=== PATIENT | male | born 1955 | race Native Hawaiian/Other Pacific Islander ===

== ENCOUNTER 2017-05-18 09:35 | Emergency (ER) | payer SELFPAY ==
[2017-05-18 09:45] VITALS: RESP 18; O2SAT 98
--- NOTE | 2017-05-18 10:13 | C.PDOC ---
History Of Present Illness 62 year old male presents to the ED with complaints of a burning sensation, worsen by eating, and diffuse abdominal pain for two weeks. Patient also notes increased urinary frequency. He is visiting from [facility] and states while in [place] he saw a doctor in December with an US performed showing chronic calculous cholecystitis. Patient also notes history of high blood pressure but is not taking any medications. He denies fever, nausea, vomiting, or diarrhea. Time Seen by Provider: 05/18/17 09:54 Chief Complaint (Nursing): Abdominal Pain History Per: Patient History/Exam Limitations: no limitations Onset/Duration Of Symptoms: Days (2 weeks ) Current Symptoms Are (Timing): Still Present Location Of Pain/Discomfort: Diffuse (patient points to entire abdomen ) Radiation Of Pain To:: None Quality Of Discomfort: Burning Associated Symptoms: denies: Fever, Chills, Nausea, Vomiting, Diarrhea Exacerbating Factors: Food (when eating ) Recent travel outside of the [place]: No Past Medical History Reviewed: Historical Data, Nursing Documentation, Vital Signs Vital Signs: Last Vital Signs Temp 97.6 F 05/18/17 09:37 Pulse 63 05/18/17 09:37 Resp 18 05/18/17 09:37 BP 147/87 05/18/17 09:37 Pulse Ox 98 05/18/17 14:49 - Medical History PMH: HTN Family History: States: Other Other Family History: Non-contributory. - Social History Hx Alcohol Use: No Hx Substance Use: No - Immunization History Hx Tetanus Toxoid Vaccination: No Hx Influenza Vaccination: No Hx Pneumococcal Vaccination: No Review Of Systems Constitutional: Negative for: Fever, Chills Cardiovascular: Negative for: Chest Pain, Palpitations Respiratory: Negative for: Cough, Shortness of Breath Gastrointestinal: Positive for: Abdominal Pain. Negative for: Nausea, Vomiting , Diarrhea Genitourinary: Positive for: Frequency (increased frequency of urination. ) Physical Exam - Physical Exam Appears: Non-toxic, No Acute Distress Skin: Warm, Dry Head: Atraumatic Eye(s): bilateral: Normal Inspection Oral Mucosa: Moist Neck: Supple Chest: Symmetrical, No Deformity Cardiovascular: Rhythm Regular Respiratory: Normal Breath Sounds, No Rales, No Rhonchi, No Wheezing Gastrointestinal/Abdominal: Soft, Tenderness (Lower abdominal tenderness, no RUQ tenderness ), No Distention, No Guarding, No Rebound Neurological/Psych: Oriented x3, Normal Speech, Normal Cognition, Normal Motor, Normal Sensation ED Course And Treatment - Laboratory Results Result Diagrams: 05/18/17 10:30 05/18/17 10:30 ECG: Interpreted By Me, Viewed By Me ECG Rhythm: Sinus Rhythm Rate From EC O2 Sat by Pulse Oximetry: 98 (room air ) - CT Scan/US Gall Bladder US Other Rad Studies (CT/US): Read By Radiologist, Radiology Report Reviewed CT/US Interpretation: FINDINGS: LIVER: Measures 14.3 cm in length. Normal echogenicity of the liver parenchyma. No mass. No intrahepatic bile duct dilatation. GALLBLADDER: Rather distended with cholelithiasis. No significant mural thickening or pericholecystic fluid collection is evident however. COMMON BILE DUCT: Measures 3.2 mm. No stones. No dilatation. PANCREAS: The body of pancreas is unremarkable the head and tail obscured by overlying bowel gas. RIGHT KIDNEY: Measures 10.0 cm in length. Normal echogenicity. No calculus, mass, or hydronephrosis. AORTA: No aneurysmal dilatation. IVC: Unremarkable. OTHER FINDINGS: None . IMPRESSION: Extensive cholelithiasis distends the gallbladder. No sonographic Junior sign or other sonographic evidence to suggest acute cholecystitis. Clinically correlate further. Partial imaging of the pancreas. CT Abdomen and Pelvis with contrast Other Rad Studies (CT/US): Read By Radiologist, Radiology Report Reviewed CT/US Interpretation: FINDINGS: LOWER THORAX: Unremarkable. LIVER: Diffuse fatty infiltration liver is appreciated without discrete mass throughout the liver. No definite biliary tree dilatation grossly evident. GALLBLADDER AND BILE DUCTS: Cholelithiasis identified within the lumen with the gallbladder contracted around these calculi. No obvious pattern to suggest cholecystitis. Clinically correlate nevertheless. PANCREAS: Unremarkable. No gross lesion or ductal dilatation. SPLEEN: Unremarkable. ADRENALS: Unremarkable. No mass. KIDNEYS AND URETERS: A 12 mm lesion is seen at the midpole left kidney posteriorly measuring 41 Hounsfield units. This may represent a complex cyst rather than solid solid nodule. To differentiate, follow-up CT with and without contrast is advised in the near term once all intravenous contrast is been excreted from the patient's body. No hydronephrosis. No similar lesions in the right kidney. VASCULATURE: Unremarkable. No aortic aneurysm. BOWEL: Evaluation of stomach and bowel is compromised by the lack of oral contrast material, particularly in a patient with longstanding abdominal pain. No bowel obstruction measure edema or ascites is appreciated. O gross mural thickening. Underlying lesions cannot be excluded. Moderate fecal loading is seen throughout the large bowel. APPENDIX: Normal appendix. PERITONEUM: Unremarkable. No free fluid. No free air. LYMPH NODES: Unremarkable. No enlarged lymph nodes. BLADDER: Unremarkable. REPRODUCTIVE: Unremarkable. BONES: No acute fracture. OTHER FINDINGS: None. IMPRESSION: No acute abdominal findings. Bowel evaluation as well as the stomach are compromised by lack of oral contrast administration. 12 mm nodule or complex cyst left kidney. Follow-up CT or MRI with and without contrast advised when feasible. Cholelithiasis. Diffuse fatty infiltration of the liver identified. Progress Note: Abdomen and Pelvis CT, EKG and US of gall bladder were ordered. Medical Decision Making Medical Decision Making: Patient denies the need for pain medications. Disposition - Disposition Referrals: [facility] [Outside] Disposition: HOME/ ROUTINE Disposition Time: 14:46 Condition: STABLE Forms: [facility] (Czech), General Discharge Instructions - Clinical Impression Clinical Impression: Abdominal pain - Scribe Statement The provider has reviewed the documentation as recorded by the Scribe Toyin Ho All medical record entries made by the Alejandroibe were at my direction and personally dictated by me. I have reviewed the chart and agree that the record accurately reflects my personal performance of the history, physical exam, medical decision making, and the department course for this patient. I have also personally directed, reviewed, and agree with the discharge instructions and disposition.
[2017-05-18 10:29] LABS: RBC URINE 1 /hpf (0-3); URINE BILIRUBIN NEGATIVE (NEGATIVE); URINE BLOOD NEGATIVE (NEGATIVE); URINE CALCIUM OXALATE CRYSTALS RARE /hpf (<OCC); URINE COLOR Yellow (YELLOW); URINE GLUCOSE (UA) NORMAL (Normal); URINE KETONE NEGATIVE (NEGATIVE); URINE LEUKOCYTE ESTERASE NEG Leu/uL (Negative); URINE PROTEIN NEGATIVE (NEGATIVE); URINE UROBILINOGEN NORMAL mg/dL (0.2-1.0); WBC URINE < 1 /hpf (0-5)
[2017-05-18 10:33] LABS: BASO # 0.1 K/uL (0.0-0.2); BASO % 0.8 % (0.0-2.0); EOS # 0.3 K/uL (0.0-0.7); EOS % 4.8 % (0.0-4.0); HEMATOCRIT 48.4 % (35.0-51.0); LYMPH # 1.6 K/uL (1.0-4.3); MEAN CELL VOLUME 90.3 fL (80.0-94.0); MEAN CORPUSCULAR HEMOGLOBIN 30.4 pg (27.0-31.0); MEAN CORPUSCULAR HGB CONC 33.7 g/dL (33.0-37.0); MEAN PLATELET VOLUME 8.4 fL (7.2-11.7); MONO # 0.4 K/uL (0.0-0.8); MONO % 6.3 % (0.0-10.0); RED CELL DISTRIBUTION WIDTH 12.7 % (11.5-14.5); WHITE BLOOD COUNT 7.1 K/uL (4.8-10.8)
[2017-05-18 10:45] LABS: ALB/GLOB RATIO 1.1 (1.0-2.1); ALKALINE PHOSPHATASE 66 U/L (38-126); ALT/SGPT 33 U/L (21-72); AST/SGOT 23 U/L (17-59); BILIRUBIN,TOTAL 0.7 mg/dL (0.2-1.3); BLOOD UREA NITROGEN 12 mg/dL (9-20); CALCIUM 9.2 mg/dl (8.6-10.4); CARBON DIOXIDE 24 mmol/L (22-30); CHLORIDE 104 mmol/L (98-107); GFR AFRICAN-AMERICAN > 60; GLUCOSE,RANDOM 98 mg/dL (75-110); SODIUM 142 mmol/L (132-148); TOTAL PROTEIN 6.8 g/dL (6.3-8.3)
[2017-05-18 10:51] LABS: VENOUS BLOOD GAS BASE EXCESS 0.8 mmol/L (0.0-2.0); VENOUS BLOOD GAS PCO2 43 mmHg (40-60); VENOUS BLOOD PH 7.39 (7.32-7.43)
[2017-05-18] MEDS ORDERED: Iohexol 300 100 ML IJ ONE (10:51)
--- NOTE | 2017-05-18 11:28 | CT ---
PROCEDURE: CT Abdomen and Pelvis with contrast HISTORY: abdominal pain COMPARISON: None. TECHNIQUE: Contrast dose: Omnipaque 300, 100 cc Radiation dose: Total exam DLP = 334 mGy-cm. This CT exam was performed using one or more of the following dose reduction techniques: Automated exposure control, adjustment of the mA and/or kV according to patient size, and/or use of iterative reconstruction technique. FINDINGS: LOWER THORAX: Unremarkable. LIVER: Diffuse fatty infiltration liver is appreciated without discrete mass throughout the liver. No definite biliary tree dilatation grossly evident. GALLBLADDER AND BILE DUCTS: Cholelithiasis identified within the lumen with the gallbladder contracted around these calculi. No obvious pattern to suggest cholecystitis. Clinically correlate nevertheless. PANCREAS: Unremarkable. No gross lesion or ductal dilatation. SPLEEN: Unremarkable. ADRENALS: Unremarkable. No mass. KIDNEYS AND URETERS: A 12 mm lesion is seen at the midpole left kidney posteriorly measuring 41 Hounsfield units. This may represent a complex cyst rather than solid solid nodule. To differentiate, follow-up CT with and without contrast is advised in the near term once all intravenous contrast is been excreted from the patient's body. No hydronephrosis. No similar lesions in the right kidney. VASCULATURE: Unremarkable. No aortic aneurysm. BOWEL: Evaluation of stomach and bowel is compromised by the lack of oral contrast material, particularly in a patient with longstanding abdominal pain. No bowel obstruction measure edema or ascites is appreciated. O gross mural thickening. Underlying lesions cannot be excluded. Moderate fecal loading is seen throughout the large bowel. APPENDIX: Normal appendix. PERITONEUM: Unremarkable. No free fluid. No free air. LYMPH NODES: Unremarkable. No enlarged lymph nodes. BLADDER: Unremarkable. REPRODUCTIVE: Unremarkable. BONES: No acute fracture. OTHER FINDINGS: None. IMPRESSION: No acute abdominal findings. Bowel evaluation as well as the stomach are compromised by lack of oral contrast administration 12 mm nodule or complex cyst left kidney. Follow-up CT or MRI with and without contrast advised when feasible. Cholelithiasis. Diffuse fatty infiltration of the liver identified.
--- NOTE | 2017-05-18 14:09 | US ---
HISTORY: abd pain after eating COMPARISON: None. TECHNIQUE: Sonographic evaluation of the right upper quadrant of the abdomen. FINDINGS: LIVER: Measures 14.3 cm in length. Normal echogenicity of the liver parenchyma. No mass. No intrahepatic bile duct dilatation. GALLBLADDER: Rather distended with cholelithiasis. No significant mural thickening or pericholecystic fluid collection is evident however. COMMON BILE DUCT: Measures 3.2 mm. No stones. No dilatation. PANCREAS: The body of pancreas is unremarkable the head and tail obscured by overlying bowel gas. RIGHT KIDNEY: Measures 10.0 cm in length. Normal echogenicity. No calculus, mass, or hydronephrosis. AORTA: No aneurysmal dilatation. IVC: Unremarkable. OTHER FINDINGS: None . IMPRESSION: Extensive cholelithiasis distends the gallbladder. No sonographic Junior sign or other sonographic evidence to suggest acute cholecystitis. Clinically correlate further. Partial imaging of the pancreas.
[2017-05-18 14:56] VITALS: BP 130/77; PULSE 66; TEMP 97.9
--- NOTE | 2017-05-20 00:32 | CARD ---
APPROVED REPORT EKG Measurement Heart [id number] <Conclusion> Normal sinus rhythm Normal ECG
== END 2017-05-18 14:57 | disposition home or self-care (01) ==
LOC: C.ER 09:35
DX: R10.84 Generalized abdominal pain (principal)
CPT/HCPCS: 74177; 76705; 80053; 81001; 82803; 83690; 84484; 85025; 93005; 99285; Q9967

== ENCOUNTER 2017-05-19 09:34 | Inpatient (IN) | payer MEDICAID, OTHER ==
[2017-05-19 09:39] VITALS: BMI 26.6
--- NOTE | 2017-05-19 09:50 | C.PDOC ---
History Of Present Illness 62M c/o abdominal pain after eating for the last couple weeks, worse on the right side. he describes as "burning." no fever. Time Seen by Provider: 05/19/17 09:36 Chief Complaint (Nursing): Abdominal Pain Past Medical History Vital Signs: Last Vital Signs Temp 98.6 F 05/21/17 23:35 Pulse 72 05/21/17 23:35 Resp 18 05/21/17 23:35 BP 119/69 05/21/17 23:35 Pulse Ox 96 05/21/17 23:35 - Medical History PMH: HTN Family History: States: Other Other Family History: nc - Social History Hx Alcohol Use: No Hx Substance Use: No - Immunization History Hx Tetanus Toxoid Vaccination: No Hx Influenza Vaccination: No Hx Pneumococcal Vaccination: No Review Of Systems Except As Marked, All Systems Reviewed And Found Negative. Constitutional: Negative for: Fever, Chills Cardiovascular: Negative for: Chest Pain Respiratory: Negative for: Shortness of Breath Gastrointestinal: Positive for: Abdominal Pain. Negative for: Nausea, Vomiting , Diarrhea Genitourinary: Negative for: Dysuria Physical Exam - Physical Exam Appears: Well, Non-toxic, No Acute Distress Skin: Warm, Dry Head: Atraumatic Eye(s): bilateral: PERRL Nose: No Epistaxis Oral Mucosa: Moist Cardiovascular: Rhythm Regular Respiratory: No Decreased Breath Sounds, No Accessory Muscle Use Gastrointestinal/Abdominal: Soft, Tenderness (mainly ruq and rlq), No Distention , No Guarding, No Rebound Extremity: No Swelling Neurological/Psych: Oriented x3, Normal Motor, Normal Sensation, Other (no focla deficits) ED Course And Treatment - Laboratory Results Result Diagrams: 05/21/17 08:28 05/21/17 08:28 O2 Sat by Pulse Oximetry: 97 Medical Decision Making Medical Decision Making: return visit. disc w hospitalist will admit. Disposition - Disposition Disposition: HOSPITALIZED Disposition Time: 10:14 Condition: STABLE - Clinical Impression Clinical Impression: Abdominal pain
--- NOTE | 2017-05-19 10:17 | RAD ---
HISTORY: pre op COMPARISON: Lung bases on CT abdomen and pelvis performed 05/18/17 TECHNIQUE: Chest, one view. FINDINGS: LUNGS: No focal consolidation. Please note that chest x-ray has limited sensitivity for the detection of pulmonary masses. PLEURA: No significant pleural effusion identified. No definite pneumothorax . CARDIOVASCULAR: The cardiomediastinal silhouette appears within normal limits of size. OSSEOUS STRUCTURES: No acute osseous abnormality identified. VISUALIZED UPPER ABDOMEN: Unremarkable. OTHER FINDINGS: None. IMPRESSION: No focal consolidation, significant pleural effusion, or definite pneumothorax identified.
[2017-05-19 10:19] LABS: BASO # 0.1 K/uL (0.0-0.2); EOS # 0.3 K/uL (0.0-0.7); EOS % 3.9 % (0.0-4.0); HEMATOCRIT 48.9 % (35.0-51.0); LYMPH # 2.1 K/uL (1.0-4.3); LYMPH % 27.4 % (20.0-40.0); MEAN CELL VOLUME 90.1 fL (80.0-94.0); MEAN CORPUSCULAR HEMOGLOBIN 30.3 pg (27.0-31.0); MEAN CORPUSCULAR HGB CONC 33.6 g/dL (33.0-37.0); MEAN PLATELET VOLUME 8.6 fL (7.2-11.7); MONO # 0.4 K/uL (0.0-0.8); MONO % 5.7 % (0.0-10.0); NRBC % 0.1 % (0.0-2.0); RED CELL DISTRIBUTION WIDTH 12.8 % (11.5-14.5); WHITE BLOOD COUNT 7.5 K/uL (4.8-10.8)
[2017-05-19 10:27] LABS: RBC URINE < 1 /hpf (0-3); URINE BACTERIA RARE (<OCC); URINE BILIRUBIN NEGATIVE (NEGATIVE); URINE BLOOD NEGATIVE (NEGATIVE); URINE COLOR Yellow (YELLOW); URINE GLUCOSE (UA) NORMAL (Normal); URINE KETONE NEGATIVE (NEGATIVE); URINE LEUKOCYTE ESTERASE NEG Leu/uL (Negative); URINE PROTEIN NEGATIVE (NEGATIVE); URINE UROBILINOGEN NORMAL mg/dL (0.2-1.0); WBC URINE 2 /hpf (0-5)
[2017-05-19 10:30] LABS: INR 1.1
[2017-05-19 10:31] LABS: ALB/GLOB RATIO 1.1 (1.0-2.1); ALKALINE PHOSPHATASE 66 U/L (38-126); ALT/SGPT 36 U/L (21-72); AST/SGOT 23 U/L (17-59); BILIRUBIN,TOTAL 0.8 mg/dL (0.2-1.3); BLOOD UREA NITROGEN 12 mg/dL (9-20); CARBON DIOXIDE 20 mmol/L (22-30); CHLORIDE 105 mmol/L (98-107); GFR AFRICAN-AMERICAN > 60; GLUCOSE,RANDOM 85 mg/dL (75-110); SODIUM 140 mmol/L (132-148); TOTAL PROTEIN 7.2 g/dL (6.3-8.3)
[2017-05-19 10:34] LABS: POTASSIUM 4.5 mmol/L (3.6-5.2)
[2017-05-19] MEDS ORDERED: Sodium Chloride 0.9% 1,000 ML IV SCH (11:00)
[2017-05-19] MEDS ORDERED: Sodium Chloride 0.9% 1,000 ML ONE (11:19)
[2017-05-19] MEDS ORDERED: Sodium Chloride 0.9% 1,000 ML IV ONE (11:42)
[2017-05-19] MEDS: Pantoprazole 40 mg EC Tab PO SCH (13:19)
[2017-05-19] MEDS ORDERED: Pantoprazole 40 mg EC Tab PO ONE (13:20)
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
--- NOTE | 2017-05-19 16:45 | CP.PCM.CON ---
<KristoferCandice - Last Filed: 05/19/17 16:40> History of Present Illness - History of Present Illness History of Present Illness: General Surgery - Dr. Clayton 62yo M from [facility] presents w/ generalized abdominal pain x6 months, worse for the past 2 days. Pt states the pain is located in the mid abdominal region, has been going on for the past 6 months but became worse within the past few days. He denies any inciting factors or foods. Pt came to the ED yesterday and had US done which showed gallstones but no other findings. He returned home but states that last night the pain became worse again and so he returned to the ED this morning. Pt denies any other symptoms including N/V, F/C, SOb/Cp , Diarrhea, Constipation, Dysuria, Hematuria. HE does admit to urinary frequency. PMH; denies any PSH: none NKDA Review of Systems - Review of Systems All systems: reviewed and no additional remarkable complaints except (as per HPI ) Past Patient History - Infectious Disease Hx of Infectious Diseases: None - Past Social History Smoking Status: Never Smoked - CARDIAC Hx Hypertension: Yes - PSYCHIATRIC Hx Substance Use: No - SURGICAL HISTORY Hx Surgeries: No - ANESTHESIA Hx Anesthesia: No Meds Allergies/Adverse Reactions: Allergies Allergy/AdvReac Type Severity Reaction Status Date / Time mushroom Allergy ITCHING Verified 05/19/17 09:38 - Medications Medications: Current Medications Heparin Sodium (Porcine) (Heparin) 5,000 units SC Q12 FELA Stop: 05/19/17 23:59 Sodium Chloride (Sodium Chloride 0.9%) 1,000 mls @ 80 mls/hr IV .[id number] ONE Stop: 05/20/17 00:11 Last Admin: 05/19/17 14:12 Dose: 80 mls/hr Ketorolac Tromethamine (Toradol) 15 mg IVP Q6 PRN PRN Reason: Pain, moderate (4-7) Ketorolac Tromethamine (Toradol) 30 mg IVP Q6 PRN PRN Reason: Pain, severe (8-10) Ondansetron HCl (Zofran Inj) 4 mg IVP Q8 PRN PRN Reason: Nausea/Vomiting Pantoprazole Sodium (Protonix Ec Tab) 40 mg PO DAILY [facility] Last Admin: 05/19/17 13:19 Dose: 40 mg Physical Exam - Constitutional Appears: No Acute Distress - Head Exam Head Exam: ATRAUMATIC, NORMAL INSPECTION, NORMOCEPHALIC - Respiratory Exam Respiratory Exam: NORMAL BREATHING PATTERN. absent: Respiratory Distress - Cardiovascular Exam Cardiovascular Exam: REGULAR RHYTHM - GI/Abdominal Exam GI & Abdominal Exam: Soft, Tenderness (mild ttp in periumbilical region, slight in RUQ, no murphys sign). absent: Distended, Firm, Guarding, Rebound, Rigid - Neurological Exam Neurological exam: Alert, Oriented x3 - Psychiatric Exam Psychiatric exam: Normal Affect, Normal Mood - Skin Skin Exam: Dry, Intact Results - Vital Signs Recent Vital Signs: Last Vital Signs Temp 98.2 F 05/19/17 15:00 Pulse 62 05/19/17 15:00 Resp 20 05/19/17 15:00 BP 116/72 05/19/17 15:00 Pulse Ox 95 05/19/17 15:00 - Labs Result Diagrams: 05/19/17 10:16 05/19/17 10:16 Assessment & Plan - Assessment and Plan (Free Text) Assessment: 62yo M w/ gallstones, recurrent biliary colic -Plan for Lap Cholecystectomy tomorrow -NPO@midnight -IVF -Pain control DW Dr Forrest Miner PGy3 <Jessee Clayton - Last Filed: 05/24/17 21:02> Results - Vital Signs Recent Vital Signs: Last Vital Signs Temp 98.1 F 05/22/17 07:53 Pulse 64 05/22/17 07:53 Resp 20 05/22/17 07:53 BP 121/70 05/22/17 07:53 Pulse Ox 96 05/22/17 07:53 - Labs Result Diagrams: 05/21/17 08:28 05/21/17 08:28 Attending/Attestation - Attestation I have personally seen and examined this patient.: Yes I have fully participated in the care of the patient.: Yes I have reviewed all pertinent clinical information: Yes Notes (Text): 05/24/17 21:01 Pt was seen and examined at bedside Agree with above note and assessment Pt with Chronic cholecystitis and Cholelithiasis Labs and radiology reviewed Tender in RUQ OR for Lap Cholecystectomy Medical clearance Consent NPO, IVF Plan d.w pt in detail Risk and benefit explained in detail.
[2017-05-20 08:18] LABS: CHLORIDE 109 mmol/L (98-107)
[2017-05-20 08:19] LABS: POTASSIUM 4.5 mmol/L (3.6-5.2); SODIUM 141 mmol/L (132-148)
[2017-05-20 08:21] LABS: GFR AFRICAN-AMERICAN > 60
[2017-05-20 08:22] LABS: ALB/GLOB RATIO 1.2 (1.0-2.1); ALKALINE PHOSPHATASE 60 U/L (38-126); ALT/SGPT 32 U/L (21-72); AST/SGOT 16 U/L (17-59); BILIRUBIN,TOTAL 0.6 mg/dL (0.2-1.3); BLOOD UREA NITROGEN 12 mg/dL (9-20); CARBON DIOXIDE 22 mmol/L (22-30); TOTAL PROTEIN 6.4 g/dL (6.3-8.3)
[2017-05-20 08:23] LABS: CALCIUM 8.3 mg/dl (8.6-10.4); GLUCOSE,RANDOM 86 mg/dL (75-110)
[2017-05-20] MEDS: Pantoprazole 40 mg EC Tab PO SCH (09:49)
[2017-05-20] MEDS ORDERED: ceFAZolin IV 2 gm in Dextrose 1 GM/50 ML BAG IVPB ONE (10:07)
[2017-05-20] MEDS ORDERED: Lidocaine 1% Inj (20ml) ONE (10:07)
[2017-05-20] MEDS ORDERED: Bupivacaine-Epi 0.25%-1:200,000 PF Inj ONE (10:07)
--- NOTE | 2017-05-20 13:56 | CP.PCM.PN ---
<Alicia Garcia - Last Filed: 05/20/17 16:42> Subjective - Date & Time of Evaluation Date of Evaluation: 05/20/17 Time of Evaluation: 13:52 - Subjective Subjective: Patient seen and examined at bedside. Patient pending cholecystectomy later today, currently NPO. Patient denied any acute events overnight. Patient states mild discomfort with movement. Patient denied any andujar/cp/sob/f/c/n/v/d. Objective - Vital Signs/Intake and Output Vital Signs (last 24 hours): Temp Pulse Resp BP Pulse Ox 97.6 F 64 20 129/80 96 05/20/17 08:32 05/20/17 08:32 05/20/17 08:32 05/20/17 08:32 05/20/17 08:32 - Medications Medications: Current Medications Sodium Chloride (Sodium Chloride 0.9%) 1,000 mls @ 100 mls/hr IV .Q10H [facility] Morphine Sulfate (Morphine) 2 mg IVP Q4 PRN PRN Reason: Pain, moderate (4-7) Ondansetron HCl (Zofran Inj) 4 mg IVP Q8 PRN PRN Reason: Nausea/Vomiting Pantoprazole Sodium (Protonix Ec Tab) 40 mg PO DAILY [facility] Last Admin: 05/20/17 09:49 Dose: Not Given Pneumococcal Polyvalent Vaccine (Pneumovax 23 Vaccine) 0.5 ml IM .ONCE ONE Stop: 05/21/17 10:01 - Labs Labs: 05/20/17 07:32 PT 12.3 SECONDS (9.7-12.2) H 05/19/17 10:16 INR 1.1 05/19/17 10:16 APTT 34 SECONDS (21-34) D 05/20/17 07:32 - Constitutional Appears: Non-toxic, No Acute Distress - Head Exam Head Exam: NORMAL INSPECTION - Eye Exam Eye Exam: EOMI - ENT Exam ENT Exam: Mucous Membranes Moist - Respiratory Exam Respiratory Exam: Clear to Ausculation Bilateral, NORMAL BREATHING PATTERN - Cardiovascular Exam Cardiovascular Exam: REGULAR RHYTHM, +S1, +S2. absent: Bradycardia, Tachycardia , Murmur - GI/Abdominal Exam GI & Abdominal Exam: Soft, Normal Bowel Sounds. absent: Distended, Tenderness - Extremities Exam Extremities Exam: Normal Inspection - Neurological Exam Neurological Exam: Alert, Awake - Psychiatric Exam Psychiatric exam: Normal Affect, Normal Mood - Skin Skin Exam: Dry, Intact, Warm Assessment and Plan - Assessment and Plan (Free Text) Assessment: Biliary Colic * RUQ US and CT abdomen pelvis shows cholelithiasis without signs of acute cholecystitis * Gen Surg consult (Dr. Clayton) - Lap cholecystectomy planned for 05/21 * CXR and EKG unremarkable * Toradol 15 mg IV Q6 PRN mod pain, Toradol 30 mg IV Q6 PRN severe pain Acidosis * resolved 05/20 * NS @ 100 cc/hr Prophylaxis * Heparin 5000 U SC q12 * SCDs * Protonix 40 mg PO QD * Zofran 4 mg IV q8 prn N/V Complex Left Renal Cyst * seen on CT abd/pelvis * F/U renal US in 6 months Disposition: Patient will be discharged after surgery if medically stable <Lorenzo Interiano - Last Filed: 05/20/17 17:46> Objective - Vital Signs/Intake and Output Vital Signs (last 24 hours): Temp Pulse Resp BP Pulse Ox 98.3 F 60 20 134/78 96 05/20/17 17:04 05/20/17 17:04 05/20/17 17:04 05/20/17 17:04 05/20/17 17:04 - Medications Medications: Current Medications Sodium Chloride (Sodium Chloride 0.9%) 1,000 mls @ 100 mls/hr IV .Q10H [facility] Morphine Sulfate (Morphine) 2 mg IVP Q4 PRN PRN Reason: Pain, moderate (4-7) Ondansetron HCl (Zofran Inj) 4 mg IVP Q8 PRN PRN Reason: Nausea/Vomiting Pantoprazole Sodium (Protonix Ec Tab) 40 mg PO DAILY [facility] Last Admin: 05/20/17 09:49 Dose: Not Given Pneumococcal Polyvalent Vaccine (Pneumovax 23 Vaccine) 0.5 ml IM .ONCE ONE Stop: 05/21/17 10:01 - Labs Labs: 05/20/17 07:32 PT 12.3 SECONDS (9.7-12.2) H 05/19/17 10:16 INR 1.1 05/19/17 10:16 APTT 34 SECONDS (21-34) D 05/20/17 07:32 Attending/Attestation - Attestation I have personally seen and examined this patient.: Yes I have fully participated in the care of the patient.: Yes I have reviewed all pertinent clinical information, including history, physical exam and plan: Yes Notes (Text): 05/20/17 17:46 Patient was seen and examined at 8:15 AM Exam was uremarkable and there was NO GI tenderness For OR today for Lap Yas Lorenzo Interiano D.O.
--- NOTE | 2017-05-20 16:40 | CP.PCM.PN ---
Subjective - Date & Time of Evaluation Date of Evaluation: 05/20/17 Time of Evaluation: 16:39 - Subjective Subjective: Gen Sx: Dr Clayton Pt for OR tomorrow for faheem rodríguez. NPO @ ID. Pre-op clearance done. Objective - Vital Signs/Intake and Output Vital Signs (last 24 hours): Temp Pulse Resp BP Pulse Ox 97.6 F 64 20 129/80 96 05/20/17 08:32 05/20/17 08:32 05/20/17 08:32 05/20/17 08:32 05/20/17 08:32 - Medications Medications: Current Medications Sodium Chloride (Sodium Chloride 0.9%) 1,000 mls @ 100 mls/hr IV .Q10H [facility] Morphine Sulfate (Morphine) 2 mg IVP Q4 PRN PRN Reason: Pain, moderate (4-7) Ondansetron HCl (Zofran Inj) 4 mg IVP Q8 PRN PRN Reason: Nausea/Vomiting Pantoprazole Sodium (Protonix Ec Tab) 40 mg PO DAILY [facility] Last Admin: 05/20/17 09:49 Dose: Not Given Pneumococcal Polyvalent Vaccine (Pneumovax 23 Vaccine) 0.5 ml IM .ONCE ONE Stop: 05/21/17 10:01 - Labs Labs: 05/20/17 07:32 PT 12.3 SECONDS (9.7-12.2) H 05/19/17 10:16 INR 1.1 05/19/17 10:16 APTT 34 SECONDS (21-34) D 05/20/17 07:32
[2017-05-20] MEDS: Sodium Chloride 0.9% 1,000 ML IV SCH (21:19)
[2017-05-21] MEDS: Sodium Chloride 0.9% 1,000 ML IV SCH (07:24)
[2017-05-21 08:41] LABS: CHLORIDE 109 mmol/L (98-107)
[2017-05-21 08:42] LABS: POTASSIUM 4.2 mmol/L (3.6-5.2); SODIUM 140 mmol/L (132-148)
[2017-05-21 08:44] LABS: ALB/GLOB RATIO 1.2 (1.0-2.1); ALKALINE PHOSPHATASE 64 U/L (38-126); AST/SGOT 18 U/L (17-59); BILIRUBIN,TOTAL 0.9 mg/dL (0.2-1.3); BLOOD UREA NITROGEN 9 mg/dL (9-20); CARBON DIOXIDE 24 mmol/L (22-30); GFR AFRICAN-AMERICAN > 60; GLUCOSE,RANDOM 85 mg/dL (75-110); TOTAL PROTEIN 6.5 g/dL (6.3-8.3)
[2017-05-21 08:45] LABS: ALT/SGPT 31 U/L (21-72); CALCIUM 8.3 mg/dl (8.6-10.4)
[2017-05-21 08:47] LABS: BASO # 0.1 K/uL (0.0-0.2); BASO % 0.9 % (0.0-2.0); EOS # 0.3 K/uL (0.0-0.7); EOS % 4.1 % (0.0-4.0); HEMATOCRIT 46.1 % (35.0-51.0); LYMPH # 1.4 K/uL (1.0-4.3); LYMPH % 22.6 % (20.0-40.0); MEAN CELL VOLUME 90.4 fL (80.0-94.0); MEAN CORPUSCULAR HEMOGLOBIN 30.5 pg (27.0-31.0); MEAN CORPUSCULAR HGB CONC 33.8 g/dL (33.0-37.0); MEAN PLATELET VOLUME 8.6 fL (7.2-11.7); MONO # 0.3 K/uL (0.0-0.8); MONO % 4.6 % (0.0-10.0); RED CELL DISTRIBUTION WIDTH 12.7 % (11.5-14.5); WHITE BLOOD COUNT 6.2 K/uL (4.8-10.8)
[2017-05-21] MEDS ORDERED: Pneumococcal 23-Valent Vaccine IM ONE (10:00)
[2017-05-21] MEDS: Pantoprazole 40 mg EC Tab PO SCH (10:03)
[2017-05-21] MEDS: Lidocaine 1% Inj (20ml) ONE ×2 (11:29→12:05)
[2017-05-21] MEDS: Bupivacaine-Epi 0.25%-1:200,000 PF Inj ONE ×2 (11:29→12:05)
[2017-05-21] MEDS ORDERED: Succinylcholine Chloride 20 mg/ml Syr (5 ml) IV ONE (12:05)
[2017-05-21] MEDS ORDERED: Lactated Ringer's 1,000 ML IV ONE ×2 (12:05→13:13)
[2017-05-21] MEDS ORDERED: Rocuronium 10 mg/ml (5 ml) ONE (12:05)
[2017-05-21] MEDS ORDERED: Propofol 10 mg/ml Inj (20 ML) ONE (12:06)
[2017-05-21] MEDS ORDERED: Midazolam 2 MG/2 ML VIAL ONE (12:06)
[2017-05-21] MEDS ORDERED: ceFAZolin IV 1 gm in Dextrose 1 GM/50 ML BAG IVPB ONE (12:09)
[2017-05-21] MEDS ORDERED: Neostigmine Methylsulfate 3mg/3ml Syringe IV ONE (13:08)
[2017-05-21] MEDS ORDERED: Lactated Ringer's 1,000 ML IV SCH (13:30)
[2017-05-21] MEDS ORDERED: HYDROmorphone 0.5 mg/0.5 ml ISec IVP PRN (13:39)
[2017-05-21] MEDS: HYDROmorphone 0.5 mg/0.5 ml ISec IVP PRN ×3 (13:42→15:15)
--- NOTE | 2017-05-21 13:45 | PCM.SURG1 ---
Surgeon's Initial Post Op Note - Surgeon's Notes Surgeon: Dr. Clayton Museum Director: Jayjay Morales PGY2 Type of Anesthesia: General Endo Pre-Operative Diagnosis: recurrent biliary cholic Operative Findings: Gallstones Post-Operative Diagnosis: Same Operation Performed: Laparoscopic cholecystectomy Specimen/Specimens Removed: gallbladder Estimated Blood Loss: EBL {In ML}: 10 Blood Products Given: N/A Drains Used: No Drains Post-Op Condition: Good Date of Surgery/Procedure: 05/21/17 Time of Surgery/Procedure: 13:45
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
[2017-05-21] MEDS: Oxycodone/Acetaminophen 5/325 mg Tab PO PRN (18:12)
--- NOTE | 2017-05-21 18:29 | CARD ---
APPROVED REPORT EKG Measurement Heart [id number] <Conclusion> Sinus bradycardia Otherwise normal ECG
[2017-05-22] MEDS: Oxycodone/Acetaminophen 5/325 mg Tab PO PRN ×2 (02:07→10:13)
[2017-05-22] MEDS: Sodium Chloride 0.9% 1,000 ML IV SCH (02:30)
[2017-05-22 07:54] VITALS: BP 121/70; PULSE 64; RESP 20; TEMP 98.1; O2SAT 96
--- NOTE | 2017-05-22 08:30 | CP.PCM.PN ---
<[place] - Last Filed: 05/22/17 08:44> Subjective - Date & Time of Evaluation Date of Evaluation: 05/22/17 Time of Evaluation: 08:30 - Subjective Subjective: Patient was seen and examined at bedside in no acute distress. Patient reports having pain at the surgical site, but is improving. Patient denies chest pain, leg pain, headaches, nausea, vomiting, and fevers. Objective - Vital Signs/Intake and Output Vital Signs (last 24 hours): Temp Pulse Resp BP Pulse Ox 98.1 F 64 20 121/70 96 05/22/17 07:53 05/22/17 07:53 05/22/17 07:53 05/22/17 07:53 05/22/17 07:53 - Medications Medications: Current Medications Enoxaparin Sodium (Lovenox) 30 mg SC DAILY [facility] Hydromorphone HCl (Dilaudid) 0.5 mg IVP Q4H PRN PRN Reason: Pain, severe (8-10) Sodium Chloride (Sodium Chloride 0.9%) 1,000 mls @ 100 mls/hr IV .Q10H [facility] Last Admin: 05/22/17 02:30 Dose: Not Given Lactated Ringer's (Lactated Ringer's) 1,000 mls @ 100 mls/hr IV .Q10H [facility] Ondansetron HCl (Zofran Inj) 4 mg IVP Q8 PRN PRN Reason: Nausea/Vomiting Oxycodone/Acetaminophen (Percocet 5/325 Mg Tab) 2 tab PO Q4H PRN PRN Reason: Pain, moderate (4-7) Stop: 05/24/17 13:41 Last Admin: 05/22/17 02:07 Dose: 2 tab Pantoprazole Sodium (Protonix Ec Tab) 40 mg PO DAILY [facility] Last Admin: 05/21/17 10:03 Dose: Not Given - Labs Labs: PT 12.3 SECONDS (9.7-12.2) H 05/19/17 10:16 INR 1.1 05/19/17 10:16 APTT 34 SECONDS (21-34) D 05/20/17 07:32 - Head Exam Head Exam: ATRAUMATIC, NORMAL INSPECTION - Eye Exam Eye Exam: EOMI, Normal appearance - ENT Exam ENT Exam: Mucous Membranes Moist - Respiratory Exam Respiratory Exam: Clear to Ausculation Bilateral, NORMAL BREATHING PATTERN. absent: Rales, Rhonchi, Wheezes - Cardiovascular Exam Cardiovascular Exam: REGULAR RHYTHM, +S1, +S2 - GI/Abdominal Exam GI & Abdominal Exam: Soft, Tenderness, Hypoactive Bowel Sounds. absent: Distended Additional comments: s/p lap cholecystectomy- dressings clean, dry, intact - Extremities Exam Extremities Exam: Normal Inspection. absent: Pedal Edema, Tenderness - Neurological Exam Neurological Exam: Alert, Awake - Psychiatric Exam Psychiatric exam: Normal Affect, Normal Mood - Skin Skin Exam: Dry, Intact, Normal Color, Warm Assessment and Plan - Assessment and Plan (Free Text) Assessment: 62 year old male s/p laproscopic cholecystectomy, POD#1. - Patient is clear for discharge, pending on evaluation in afternoon. - Continue pain management. - Continue medical management as per hospitalist team. <Jessee Clayton - Last Filed: 05/24/17 21:09> Objective - Vital Signs/Intake and Output Vital Signs (last 24 hours): Temp Pulse Resp BP Pulse Ox 98.1 F 64 20 121/70 96 05/22/17 07:53 05/22/17 07:53 05/22/17 07:53 05/22/17 07:53 05/22/17 07:53 - Labs Labs: PT 12.3 SECONDS (9.7-12.2) H 05/19/17 10:16 INR 1.1 05/19/17 10:16 APTT 34 SECONDS (21-34) D 05/20/17 07:32 Attending/Attestation - Attestation I have personally seen and examined this patient.: Yes I have fully participated in the care of the patient.: Yes I have reviewed all pertinent clinical information, including history, physical exam and plan: Yes Notes (Text): 05/24/17 21:09 Pt was seen and examined at bedside Agree with above note and assessment Pt can be DC home F.U as out pt Low fat reg diet
[2017-05-22] MEDS ORDERED: Enoxaparin 30 mg Syringe SC SCH (10:00)
[2017-05-22] MEDS: Pantoprazole 40 mg EC Tab PO SCH (10:13)
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
[2017-05-22] MEDS ORDERED: Oxycodone/Acetaminophen 5/325 mg Tab PO PRN (13:41)
[2017-05-22] MEDS ORDERED: Pneumococcal 23-Valent Vaccine IM ONE (14:00)
--- NOTE | 2017-05-25 04:45 | OP ---
PROCEDURE DATE: 05/21/2017 PREOPERATIVE DIAGNOSIS: Cholelithiasis and chronic cholecystitis. POSTOPERATIVE DIAGNOSES: 1. Chronic cholecystitis and cholelithiasis. 2. Extensive postinfectious adhesion of the omentum to the anterior abdominal wall, colon, and duodenum to the gallbladder. PROCEDURES: 1. Laparoscopic extensive lysis of adhesions. 2. Laparoscopic cholecystectomy. SURGEON: Jessee Clayton MD [employer]: Key Ricardo, PGY-2 resident. TYPE OF ANESTHESIA: General endotracheal tube anesthesia. INTRAOPERATIVE FINDINGS: The patient had changes of chronic cholecystitis and cholelithiasis, and the patient also had extensive omental attachment to the anterior abdominal wall as well as to the right upper abdomen, to the liver, colon to the gallbladder, duodenum to the gallbladder, and extensive lysis of adhesion was done, and on intraoperative steps. ESTIMATED BLOOD LOSS: Around 10 mL. DRAINS: None. PATHOLOGY: Gallbladder with gallstones sent for pathology. COMPLICATIONS: None. DESCRIPTION OF PROCEDURE: This is a 62-year-old male, who was diagnosed with chronic cholecystitis and cholelithiasis, and the patient was consented for the laparoscopic cholecystectomy, possible open. The patient was brought to the OR, placed supine on the operating table. After induction of the anesthesia, abdomen was prepped and draped in the usual sterile fashion. The supraumbilical transverse 1.5 cm incision was made, after incising the skin and subcutaneous tissue. Another, 12 mm port was placed in upper abdomen, below costal margin. Another, two 5 mm port was placed in midclavicular anterior axillary line. After that grasper and dissector was introduced and the patient was found to have extensive omental attachment to the anterior abdominal wall with extensive lysis of adhesion done, and the gallbladder was identified. The colon attachment as well as the duodenal attachment to the gallbladder was also lysed and gallbladder was retracted cranially. Infundibulum was identified and also the Calot triangle was identified, and the Calot triangle dissection was done. Cystic duct and cystic artery was identified. The critical view of the safety was also identified and the cystic duct and cystic artery was clipped at 3 places, and cut in between 2 clips nearby gallbladder and gallbladder wall dissected-free from the gallbladder fossa. EndoCatch bag taken out through the umbilical port site and sent to the table for the pathology. There was proper hemostasis on each and every part of the procedure. The suction, irrigation of the gallbladder fossa, as well as perihepatic area was done and after proper hemostasis, all the ports were taken down under vision, pneumo was deflated. Umbilical port site was closed using 2 layers, the fascia with 0 Vicryl interrupted sutures, skin with a 4-0 Monocryl, and dry sterile dressing was applied. The patient tolerated the procedure well. Count of instrument and gauze was correct. There was no apparent complication. Jessee Clayton MD
== END 2017-05-22 15:35 | disposition home or self-care (01) | DRG 418 ==
LOC: C.ER 09:34 → C.9E 11:51 → C.5T 12:25 → C.5S 05-20 09:22 → OBSVTOIN 05-21 18:39
PROVIDERS: ADMIT Family Medicine; ATTEND Family Medicine
PROC: 0FT44ZZ Resection of Gallbladder, Percutaneous Endoscopic Approach (ICD-10-PCS; principal; 2017-05-21 11:30)
DX: K80.10 Calculus of gallbladder with chronic cholecystitis without obstruction (principal); E87.2 Acidosis; I10 Essential (primary) hypertension; K66.0 Peritoneal adhesions (postprocedural) (postinfection); K82.8 Other specified diseases of gallbladder